=== PATIENT | male | born 1945 | race Caucasian/White ===

== ENCOUNTER 2024-03-25 08:04 | Emergency (ER) | payer MEDICARE, BC ==
[2024-03-25] MEDS: Diphtheria,Pertussis(Acell),Tetanus Vaccine 0.5 ML Syringe IM ONE (09:14)
[2024-03-25] MEDS: Bacitracin Oint 1 GM U/D Packet TOP ONE (09:15)
== END 2024-03-25 08:50 | disposition home or self-care (01) ==
LOC: LB.ED 08:04
DX: S61.431A Puncture wound without foreign body of right hand, initial encounter (principal); Z79.01 Long term (current) use of anticoagulants; Z79.82 Long term (current) use of aspirin; Z79.899 Other long term (current) drug therapy; W29.4XXA Contact with nail gun, initial encounter; Y93.89 Activity, other specified
CPT/HCPCS: 99283